=== PATIENT | female | born 1945 | race Caucasian/White ===

== ENCOUNTER → 2017-06-28 | Outpatient (CLI) | payer OTHER, MEDICARE | LOC: FIMAGING 12:59 | PROVIDERS: ATTEND Obstetrics & Gynecology | DX: Z13.820 Encounter for screening for osteoporosis (principal); M81.0 Age-related osteoporosis without current pathological fracture; Z78.0 Asymptomatic menopausal state ==

== ENCOUNTER 2018-06-23 02:17 | Emergency (ER) | payer OTHER, MEDICARE ==
[2018-06-23] MEDS ORDERED: FLUORESCEIN SODIUM 1 MG STRIP OP ONE ×2 (02:28→02:33)
[2018-06-23] MEDS ORDERED: PROPARACAINE 0.5% 15 ML OPHT DROP ONE (02:29)
[2018-06-23] MEDS ORDERED: PROPARACAINE 0.5% 15 ML OPHT DROP OP ONE (02:30)
--- NOTE | 2018-06-23 02:51 | EDPHY ---
H & P Stated Complaint: RIGHT EYE PAIN SINCE 1:30,, WOKE WITH PAIN Time Seen by Provider: 06/23/18 02:25 HPI/ROS: Chief Complaint: Right eye pain HPI: 72 old woman with a history of chronic dry eyes woke up with right eye pain this morning. She has a history of a chronic corneal erosion about a urine half ago. Denies any vision changes. Denies any eye trauma or rubbing her eyes. No headache. No discharge but has had some increasing tearing. She does not wear contact lenses. ROS: 10 systems were reviewed and were negative except those elements noted in the HPI. Social History: No smoking, no alcohol, no recreational drug use Family History: non-contributory Physical Exam: General awake, alert, no acute distress Eye Exam Visual Acuity: Intact OU EOM: Intact OU Visual Ramos: Intact OU Pupil: Equal, round and reactive to light and accomodation OU External: Lids, lashes and margins normal OU Fundoscopy; Normal OU Slit Lamp; Normal Conjuctiva, Iris normal, Cornea normal, Anterior chambers clear without cells or flare, no hyphema, normal angles Fluorosceine exam: Mild diffuse punctate uptake in the central right upper quadrant of her right eye Tonometry: 30 in her right eye, 22 in her left. - Personal History Current Tetanus/Diphtheria Vaccine: No Current Tetanus Diphtheria and Acellular Pertussis (TDAP): No - Medical/Surgical History Hx Asthma: No Hx Chronic Respiratory Disease: No Hx Diabetes: No Hx Cardiac Disease: No Hx Renal Disease: No Hx Cirrhosis: No Hx Alcoholism: No Hx HIV/AIDS: No Hx Splenectomy or Spleen Trauma: No Other PMH: Back pain, L5 radicuopathy, adrenal dysfxn, HYPOTHYROID. CAD - Social History Smoking Status: Never smoked Constitutional: Initial Vital Signs Temperature (C) 36.4 C 06/23/18 02:25 Heart Rate 58 L 06/23/18 02:25 Respiratory Rate 16 06/23/18 02:25 Blood Pressure 202/88 H 06/23/18 02:25 O2 Sat (%) 96 06/23/18 02:25 O2 Delivery Mode Room Air Allergies/Adverse Reactions: No Known Allergies Allergy (Unverified 06/23/18 02:23) Home Medications: Medication Instructions Recorded Ascorbic Acid [Vitamin C 500 mg 1,000 mg PO TID 11/07/12 (OTC)] Biest Compound 1 fausto VG BID 11/07/12 Cholecalciferol (Vitamin D3) 5,000 unit PO MOTUWETHFRSA@09 11/07/12 [Vitamin D3] Estradiol Compound 1 fausto VG TUFR@21 11/07/12 Herbals/Supplements -Info Only 1 each PO AD 11/07/12 LORazepam [Ativan 0.5 mg (RX)] 0.25 mg PO BID PRN 11/07/12 Magnesium 250 mg PO TID 11/07/12 Melatonin [Melatonin 3 MG (OTC)] 3 mg PO HS 11/07/12 Multivitamins [Tab-A-Ellyn] 1 each PO DAILY 11/07/12 Pharmacist Completed 11/07/12 11/07/12 Progesterone Compound 1 fausto VG BID 11/07/12 Ramipril [Altace 2.5mg (RX)] 2.5 mg PO DAILY 11/07/12 M D Recon 11/0711/08/12 traZODone [traZODONE 50MG (RX)] 50 mg PO HS #5 tab 11/27/14 Medical Decision Making ED Course/Re-evaluation: Case discussed with Dr. Camacho, ophthalmology. He states that the patient does need short-term follow-up with Ophthalmology, either himself or Dr. Mcdonough. Does not need to be seen emergently at this time. Will start the patient on Ocuflox drops, patient has been given ibuprofen. She understands is important follow-up given the increase in her intra-ocular pressure. - Data Points Medications Given: Discontinued Medications Proparacaine HCl (Alcaine 0.5%) 1 drops OP EDNOW ONE Stop: 06/23/18 02:31 Last Admin: 06/23/18 03:06 Dose: 1 drop Departure - Departure Disposition: Home, Routine, Self-Care Clinical Impression: Corneal abrasion Condition: Good Instructions: Corneal Abrasion (ED), Ofloxacin (Into the eye) Additional Instructions: Please apply 2 drops of the Ocuflox solution to right eye every 4 hr while awake. Take ibuprofen, 600 mg every 8 hr. You may alternate with acetaminophen, 1000 mg every 8 hr. Follow up with your founder and ceo, Dr. Mcdonough, or Dr. Haines today for further evaluation. Call this morning for the next available appointment. Referrals: MONIQUE ROMAN [Primary Care Provider] - As per Instructions Donald Mcdonough MD [Medical Doctor] - As per Instructions Lisa Haines MD [Medical Doctor] - As per Instructions
[2018-06-23] MEDS ORDERED: IBUPROFEN 200 MG TAB PO ONE (03:14)
[2018-06-23] MEDS ORDERED: OFLOXACIN 0.3% SOLN PREPACK OPHT.BTL TAKEHOME ONE (03:15)
[2018-06-23 03:42] VITALS: BP 170/80
== END 2018-06-23 03:41 | disposition home or self-care (01) ==
DX: S05.01XA Injury of conjunctiva and corneal abrasion without foreign body, right eye, initial encounter (principal); Y92.9 Unspecified place or not applicable; Y93.9 Activity, unspecified